=== PATIENT | female | born 1975 | race Caucasian/White ===

== ENCOUNTER 2017-03-23 10:03 | Emergency (ER) | payer OTHER ==
[2017-03-23 10:20] VITALS: BP 118/74
--- NOTE | 2017-03-23 10:31 | UC ---
Hand/Wrist HPI - HPI Summary HPI Summary: fell exercising yesterday pain in right hand and left wrist---does have full ROM - History Of Current Complaint Chief Complaint: UCUpperExtremity Stated Complaint: LEFT WRIST/RIGHT HAND INJURY Time Seen by Provider: 03/23/17 10:21 Hx Obtained From: Patient Hx Last Menstrual Period: hysterectomy ?: No Mechanism Of Injury: foosh Onset/Duration: Sudden Onset, Lasting Days - 1, Still Present Severity Initially: Moderate Severity Currently: Moderate Pain Intensity: 5 Pain Scale Used: 0-10 Numeric Character Of Pain: Aching Aggravating Factor(s): Movement Alleviating Factor(s): Rest, OTC Meds Associated Signs And Symptoms: Positive: Negative Related History: Dominant Hand Right - Allergies/Home Medications Allergies/Adverse Reactions: Allergies Allergy/AdvReac Type Severity Reaction Status Date / Time Codeine Allergy Vomiting Verified 03/23/17 10:20 Metronidazole [From Flagyl] Allergy Anaphylatic Verified 03/23/17 10:20 Shock Pseudoephedrine Allergy Itching Verified 03/23/17 10:20 [From Sudafed] Home Medications: Home Medications NK [No Home Medications Reported] 03/23/17 [History Confirmed 03/23/17] PMH/Surg Hx/FS Hx/Imm Hx Previously Healthy: Yes - Surgical History Surgical History: Yes Surgery Procedure, Year, and Place: [id number][place]2004[place] [facility] [place] [facility] [place] [facility] [place] [facility] [place] 07/22. 3RD OVARY REMOVED 12/2015 - Family History Known Family History: Positive: None - Social History Occupation: Works From/At Home Alcohol Use: Rare Substance Use Type: None Smoking Status (MU): Never Smoked Tobacco Review of Systems Constitutional: Negative Skin: Negative Eyes: Negative ENT: Negative Respiratory: Negative Cardiovascular: Negative Gastrointestinal: Negative Genitourinary: Negative Motor: Negative Neurovascular: Negative Musculoskeletal: Arthralgia - right hand, left wrist Neurological: Negative Psychological: Negative Is Patient Immunocompromised?: No All Other Systems Reviewed And Are Negative: Yes Physical Exam Triage Information Reviewed: Yes Appearance: Well-Appearing, No Pain Distress, Well-Nourished Vital Signs: Initial Vital Signs Temp 98.2 F 03/23/17 10:16 Pulse 62 03/23/17 10:16 Resp 14 03/23/17 10:16 BP 118/74 03/23/17 10:16 Pulse Ox 100 03/23/17 10:16 Vital Signs Reviewed: Yes Eye Exam: Normal Eyes: Positive: Conjunctiva Clear ENT Exam: Normal ENT: Positive: Normal ENT inspection, Hearing grossly normal. Negative: Trismus , Muffled voice, Dental tenderness Dental Exam: Normal Neck exam: Normal Neck: Positive: Supple, Nontender Respiratory Exam: Normal Respiratory: Positive: Chest non-tender, No respiratory distress, No accessory muscle use Cardiovascular Exam: Normal Cardiovascular: Positive: RRR, Pulses Normal, Brisk Capillary Refill Musculoskeletal Exam: Normal Musculoskeletal: Positive: Strength Intact, ROM Intact, No Edema Neurological Exam: Normal Neurological: Positive: Alert, Muscle Tone Normal Psychological Exam: Normal Skin Exam: Normal Diagnostics - Radiology No standard instances Xray Interpretation: No Acute Changes Radiology Interpretation Completed By: ED Physician, Radiologist Hand/Wrist Course/Dx - Course Course Of Treatment: michaela wrap, ibuprofen, ice, follow with ortho prn - Differential Dx/Diagnosis Provider Diagnoses: Right hand contusion, left wrist sprain Discharge - Discharge Plan Condition: Stable Disposition: HOME Patient Education Materials: Ibuprofen (By mouth), Wrist Injury (ED), Contusion in Adults (ED), RICE Therapy (ED) Referrals: Kumar Millan MD [Medical Doctor] - If Needed
--- NOTE | 2017-03-23 10:57 | RAD ---
INDICATION: Right hand injury COMPARISON: None TECHNIQUE: AP, lateral, and oblique views were obtained. FINDINGS: The bony structures, joint spaces, and soft tissues are normal for age. IMPRESSION: NO ACUTE BONY FINDINGS.
--- NOTE | 2017-03-23 10:57 | RAD ---
INDICATION: Left wrist injury COMPARISON: None TECHNIQUE: AP, lateral, and oblique views were obtained. FINDINGS: The bony structures, joint spaces, and soft tissues are normal for age. IMPRESSION: NEGATIVE EXAMINATION.
== END 2017-03-23 11:27 | disposition home or self-care (01) ==
LOC: UCCORT 10:03
DX: S63.502A Unspecified sprain of left wrist, initial encounter (principal); S60.221A Contusion of right hand, initial encounter; W19.XXXA Unspecified fall, initial encounter; Y93.9 Activity, unspecified; Y92.9 Unspecified place or not applicable; Y99.9 Unspecified external cause status
CPT/HCPCS: 99212; G0463

== ENCOUNTER 2018-05-23 13:20 | Emergency (ER) | payer OTHER ==
[2018-05-23 14:24] VITALS: BP 126/80
--- NOTE | 2018-05-23 14:34 | UC ---
Complaint Female HPI - HPI Summary HPI Summary: 42 yo female presents with urinary burning, frequency, and bladder pressure since yesterday. She tells me that she has had many UTIs in the past and this feels the same. Denies fever, chills, abdominal pain, n/v, flank pain. - History Of Current Complaint Chief Complaint: UCGU Stated Complaint: URINARY Time Seen by Provider: 05/23/18 14:34 Hx Obtained From: Patient Hx Last Menstrual Period: hysterectomy Onset/Duration: Sudden Onset Timing: Constant Severity Initially: Mild Severity Currently: Mild Pain Intensity: 4 Pain Scale Used: 0-10 Numeric - Allergies/Home Medications Allergies/Adverse Reactions: Allergies Allergy/AdvReac Type Severity Reaction Status Date / Time codeine Allergy Vomiting Verified 05/23/18 14:21 metronidazole [From Flagyl] Allergy Anaphylatic Verified 05/23/18 14:21 Shock pseudoephedrine Allergy Itching Verified 05/23/18 14:21 [From Sudafed] Home Medications: Home Medications Elagolix Sodium [Orilissa] 150 mg PO DAILY 05/23/18 [History Confirmed 05/23/18] Linaclotide [Linzess] 72 mcg PO DAILY 05/23/18 [History Confirmed 05/23/18] PMH/Surg Hx/FS Hx/Imm Hx - Additional Past Medical History Additional PMH: IBS - Surgical History Surgical History: Yes Surgery Procedure, Year, and Place: [id number],2004,[place] [facility] [place],2012 [facility] [place]-LUMBAR FUSION [facility] [place]. 1996-LAMINECTOMY [facility] [place]STERECTOMY 2016. Shoulder surgery 2018. 3RD OVARY REMOVED 12/2015 - Family History Known Family History: Positive: None - Social History Occupation: Employed Full-time Lives: With Family Alcohol Use: Rare Substance Use Type: None Smoking Status (MU): Never Smoked Tobacco Review of Systems All Other Systems Reviewed And Are Negative: Yes Constitutional: Positive: Negative Skin: Positive: Negative Respiratory: Positive: Negative Cardiovascular: Positive: Negative Gastrointestinal: Positive: Negative Genitourinary: Positive: Dysuria, Frequency, Urgency Neurovascular: Positive: Negative Neurological: Positive: Negative Psychological: Positive: Negative Physical Exam - Summary Physical Exam Summary: GENERAL: NAD. WDWN. No pain distress. SKIN: No rashes, sores, lesions, or open wounds. NECK: Supple. Nontender. No lymphadenopathy. CHEST: CTAB. No r/r/w. No accessory muscle use. Breathing comfortably and in no distress. CV: RRR. Without m/r/g. Pulses intact. Cap refill <2seconds ABDOMEN: Soft. NTTP. No distention or guarding. No CVA tenderness. Bowel sounds present NEURO: Alert. PSYCH: Age appropriate behavior. Triage Information Reviewed: Yes Vital Signs: Initial Vital Signs Temp 98.2 F 05/23/18 14:19 Pulse 63 05/23/18 14:19 Resp 15 05/23/18 14:19 BP 126/80 05/23/18 14:19 Pulse Ox 100 05/23/18 14:19 Laboratory Tests 05/23/18 14:31 POC Urine Color Yellow POC Urine Clarity Clear POC Urine pH 6.5 POC Ur Specif Apex 1.010 POC Urine Protein Negative POC Ur Glucose (UA) Negative POC Urine Ketones Negative POC Urine Blood Trace-lysed A POC Urine Nitrite Negative POC Urine Bilirubin Negative POC Urine Urobilinogen 0.2 POC U Leukocyte Esteras 3+ A Vital Signs Reviewed: Yes Complaint Female Dx - Course Course Of Treatment: UA positive - rx for macrobid - Differential Dx/Diagnosis Provider Diagnosis: UTI (urinary tract infection) Discharge - Sign-Out/Discharge Documenting (check all that apply): Patient Departure All imaging exams completed and their final reports reviewed: No Studies - Discharge Plan Condition: Stable Disposition: HOME Prescriptions: Nitrofurantoin Monohyd/M-Cryst [Macrobid 100 mg Capsule] 100 mg PO BID #10 cap Patient Education Materials: Urinary Tract Infection in Women (ED) Referrals: Vanessa Toussaint MD [Primary Care Provider] - Additional Instructions: If you develop a fever, shortness of breath, chest pain, new or worsening symptoms - please call your PCP or go to the ED. - Billing Disposition and Condition Condition: STABLE Disposition: Home - Attestation Statements Provider Attestation: Per institutional requirements, I have reviewed the chart, however, I was not consulted specifically or made aware of this patient by the midlevel provider. I did not personally evaluate, interact with , or disposition this patient.
== END 2018-05-23 14:54 | disposition home or self-care (01) ==
LOC: UCCORT 13:20
DX: N39.0 Urinary tract infection, site not specified (principal); K58.9 Irritable bowel syndrome, unspecified; Z88.5 Allergy status to narcotic agent; Z88.8 Allergy status to other drugs, medicaments and biological substances; Z88.1 Allergy status to other antibiotic agents; Z79.899 Other long term (current) drug therapy
CPT/HCPCS: 81003; 87077; 87086; 87186; 99212; G0463

== ENCOUNTER 2018-07-01 16:11 | Emergency (ER) | payer OTHER ==
[2018-07-01 16:41] VITALS: BP 117/77
--- NOTE | 2018-07-01 17:21 | UC ---
UC General HPI - HPI Summary HPI Summary: day 7 of nasal congestion, post nasal drip causing a sore throat and yellow- green drainage that is sometimes bloody. + sinus pain. hx recurrent sinusitis and this is the same. no fever. taking otc medications and flushing her nose with no relief. - History of Current Complaint Chief Complaint: UCGeneralIllness Stated Complaint: SINUS/SORE THROAT/COUGH Time Seen by Provider: 07/01/18 17:13 Hx Obtained From: Patient Hx Last Menstrual Period: hysterectomy Onset/Duration: Gradual Onset Timing: Constant - with worsening Pain Intensity: 7 - Allergy/Home Medications Allergies/Adverse Reactions: Allergies Allergy/AdvReac Type Severity Reaction Status Date / Time codeine Allergy Vomiting Verified 07/01/18 16:32 metronidazole [From Flagyl] Allergy Anaphylatic Verified 07/01/18 16:32 Shock pseudoephedrine Allergy Itching Verified 07/01/18 16:32 [From Sudafed] Home Medications: Home Medications Dm/PE/Acetaminophen/Doxylamine [Daytime-Nighttime Cold-Flu] 2 each PO BID PRN [History Confirmed 07/01/18] PMH/Surg Hx/FS Hx/Imm Hx - Additional Past Medical History Additional PMH: anemia Endocrine History: Thyroid Disease Psychological History: Anxiety - Surgical History Surgical History: Yes Surgery Procedure, Year, and Place: [id number],2004,2006 [facility] [place]. DIAGNOSTIC LAP-2001,2012 [facility] [place]. 1998-LUMBAR FUSION [facility] [place]. 1996-LAM[place]OMY [facility] [place]. HYSTERECTOMY 2016. Shoulder surgery 2018. 3RD OVARY REMOVED 12/2015 - Family History Known Family History: Positive: None - Social History Alcohol Use: Occasionally Substance Use Type: None Smoking Status (MU): Never Smoked Tobacco Review of Systems All Other Systems Reviewed And Are Negative: Yes ENT: Positive: Nasal Discharge, Sinus Congestion, Sinus Pain/Tenderness Physical Exam Triage Information Reviewed: Yes Appearance: Well-Appearing Vital Signs: Initial Vital Signs Temp 97.8 F 07/01/18 16:35 Pulse 52 07/01/18 16:35 Resp 18 07/01/18 16:35 BP 117/77 07/01/18 16:35 Pulse Ox 100 07/01/18 16:35 Vital Signs Reviewed: Yes Eyes: Positive: Conjunctiva Clear ENT: Positive: Pharynx normal, Nasal congestion, TMs normal. Negative: Nasal drainage Neck: Positive: Supple, Nontender, No Lymphadenopathy Respiratory: Positive: Lungs clear, Normal breath sounds, No respiratory distress Cardiovascular: Positive: RRR, No Murmur Abdomen Description: Positive: Nontender, No Organomegaly, Soft Bowel Sounds: Positive: Present Musculoskeletal: Positive: ROM Intact Neurological: Positive: Alert Psychological: Positive: Age Appropriate Behavior Skin Exam: Normal Course/Dx - Diagnoses Provider Diagnosis: Sinusitis Discharge - Sign-Out/Discharge Documenting (check all that apply): Patient Departure All imaging exams completed and their final reports reviewed: No Studies - Discharge Plan Condition: Stable Disposition: HOME Prescriptions: Amoxicillin/Clavulanate TAB* [Augmentin TAB 875*] 875 mg PO BID 10 Days #20 tab Patient Education Materials: Sinusitis (ED) Referrals: Vanessa Toussaint MD [Primary Care Provider] - Additional Instructions: follow up with primary care in 7-10 days if not better or sooner if worse. - Billing Disposition and Condition Condition: STABLE Disposition: Home
== END 2018-07-01 17:45 | disposition home or self-care (01) ==
LOC: UCCORT 16:11
DX: J32.9 Chronic sinusitis, unspecified (principal); Z88.5 Allergy status to narcotic agent; Z88.1 Allergy status to other antibiotic agents; Z88.8 Allergy status to other drugs, medicaments and biological substances
CPT/HCPCS: 99212; G0463